=== PATIENT | female | born 1950 | race Caucasian/White ===

== ENCOUNTER → 2016-11-13 | Outpatient (CLI) | payer MEDICARE, OTHER ==
--- NOTE | 2016-11-13 14:54 | REPMRS ---
Patient History The patient states she had a clinical breast exam in 11/15 Patient is postmenopausal. No known family history of cancer. Taking estrogen for 5 years. Digital Woman Screen Mammo: November 13, 2016 - Exam #: [id number] Bilateral CC and MLO view(s) were taken. Technologist: Mary Whitehead, Technologist Prior study comparison: November 14, 2015, digital woman screen mammo performed at [facility]. August 09, 2014, digital woman screen mammo performed at [facility]. FINDINGS: There are scattered fibroglandular densities. There has been no change in the appearance of the mammogram from the prior studies. There is a mild amount of residual fibroglandular tissue which is fairly symmetric. There is no interval development of dominant mass, architectural distortion, or clustered microcalcification suggestive of malignancy. ASSESSMENT: BI-RADS/ACR category 1 mammogram. Negative. Recommendation Routine screening mammogram in 1 year (for women over age 40). This mammogram was interpreted with the aid of an FDA-approved computer-aided dectection system. Electronically Signed By: Mohsen Jimenez MD 11/13/16 6630
== END ==
LOC: M WHC 13:18
PROVIDERS: ATTEND Nurse Practitioner Family
DX: Z01.419 Encounter for gynecological examination (general) (routine) without abnormal findings (principal); Z12.31 Encounter for screening mammogram for malignant neoplasm of breast; Z78.0 Asymptomatic menopausal state; Z92.23 Personal history of estrogen therapy; Z12.12 Encounter for screening for malignant neoplasm of rectum
CPT/HCPCS: 82270; G0101; G0202

== ENCOUNTER → 2017-02-15 | Outpatient (CLI) | payer MEDICARE, OTHER ==
[2017-02-15 12:28] LABS: ALBUMIN 3.4 GM/DL (3.2-5.2); ALBUMIN/GLOBULIN RATIO 1.21 (1.00-1.93); ALKALINE PHOSPHATASE 49 U/L (45-117); ALT/SGPT 36 U/L (12-78); ANION GAP 7 MEQ/L (8-16); AST/SGOT 20 U/L (7-37); BILIRUBIN,TOTAL 0.5 MG/DL (0.2-1.0); BLOOD UREA NITROGEN 16 MG/DL (7-18); CARBON DIOXIDE LEVEL 32 MEQ/L (21-32); CHLORIDE LEVEL 105 MEQ/L (98-107); CHOLESTEROL LEVEL 235 MG/DL (<200); CREATININE FOR GFR 0.71 MG/DL (0.55-1.02); GLOMERULAR FILTRATION RATE > 60.0 (>45); GLUCOSE, FASTING 77 MG/DL (80-110); SODIUM LEVEL 144 MEQ/L (136-145); TOTAL PROTEIN 6.2 GM/DL (6.4-8.2); TRIGLYCERIDES LEVEL 95 MG/DL (<150)
== END ==
LOC: M LABDRAW1 08:11
PROVIDERS: ATTEND Nurse Practitioner Family
DX: E55.9 Vitamin D deficiency, unspecified (principal); E78.5 Hyperlipidemia, unspecified

== ENCOUNTER → 2017-11-14 | Outpatient (CLI) | payer MEDICARE, OTHER | LOC: M WHC 13:10 | DX: Z01.419 Encounter for gynecological examination (general) (routine) without abnormal findings (principal); Z12.31 Encounter for screening mammogram for malignant neoplasm of breast (principal); Z78.0 Asymptomatic menopausal state; Z92.23 Personal history of estrogen therapy; Z12.12 Encounter for screening for malignant neoplasm of rectum; N95.2 Postmenopausal atrophic vaginitis | CPT/HCPCS: 77067 ==

== ENCOUNTER → 2018-11-26 | Outpatient (REF) | payer MEDICARE, OTHER | LOC: M SFHCWAGY 15:07 | PROVIDERS: ATTEND Nurse Practitioner Family | DX: Z12.4 Encounter for screening for malignant neoplasm of cervix (principal); R87.615 Unsatisfactory cytologic smear of cervix ==

== ENCOUNTER → 2018-11-26 | Outpatient (CLI) | payer MEDICARE, OTHER ==
--- NOTE | 2018-11-26 15:48 | REPMRS ---
Patient History The patient states she had a clinical breast exam in 10/2018. Patient is postmenopausal. No known family history of cancer. Took estrogen for 7 years. Digital Woman Screen Mammo: November 26, 2018 - Exam #: [id number] Bilateral CC and MLO view(s) were taken. Technologist: Sofi Cardoso, Technologist Prior study comparison: November 14, 2017, bilateral digital woman screen mammo performed at [facility]. November 13, 2016, digital woman screen mammo performed at [facility]. November 14, 2015, digital woman screen mammo performed at [facility]. FINDINGS: There are scattered fibroglandular densities. There has been no change in the appearance of the mammogram from the prior studies. There is a mild amount of scattered fibroglandular density which is fairly symmetric. There is no interval development of dominant mass, architectural distortion, or grouped microcalcification suggestive of malignancy. 3-D tomosynthesis shows no additional findings. Assessment: BI-RADS/ACR category 1 mammogram. Negative Mammogram. Recommendation Routine screening mammogram of both breasts in 1 year (for women over age 40). This patient's Lifetime Breast Cancer Risk is estimated at 5.6 %. This mammogram was interpreted with the aid of an FDA-approved computer-aided dectection system. Electronically Signed By: Jam Bennett MD 11/26/18 2319
== END ==
LOC: M WHC 14:47
PROVIDERS: ATTEND Nurse Practitioner Family
DX: Z01.419 Encounter for gynecological examination (general) (routine) without abnormal findings (principal); Z12.31 Encounter for screening mammogram for malignant neoplasm of breast; Z78.0 Asymptomatic menopausal state; Z92.23 Personal history of estrogen therapy
CPT/HCPCS: 77063; 77067; G0101; G0123

== ENCOUNTER → 2018-12-08 | Outpatient (REF) | payer MEDICARE, OTHER ==
[2018-12-08 13:18] LABS: BLOOD UREA NITROGEN 15 MG/DL (7-18); CALCIUM LEVEL 9.1 MG/DL (8.8-10.2); CARBON DIOXIDE LEVEL 29 MEQ/L (21-32); CHLORIDE LEVEL 110 MEQ/L (98-107); GLOMERULAR FILTRATION RATE > 60.0 (>45); GLUCOSE, FASTING 93 MG/DL (70-100); POTASSIUM SERUM 4.1 MEQ/L (3.5-5.1); SODIUM LEVEL 145 MEQ/L (136-145)
[2018-12-10 00:06] LABS: IgG P18 AB Present (.); IgG P23 AB Absent (.); IgG P28 AB Present (.); IgG P30 AB Absent (.); IgG P39 AB Absent (.); IgG P41 AB Absent (.); IgG P45 AB Absent (.); IgG P66 AB Absent (.); IgG P93 AB Absent (.); IgM P23 AB Absent (.); IgM P39 AB Absent (.); IgM P41 AB Absent (.); LYME IgG WB INTERPRETATION Negative (.); LYME IgM WB INTERPRETATION Negative (.)
== END ==
LOC: M LABDRAW1 11:43
PROVIDERS: ATTEND Family Medicine
DX: S30.860D Insect bite (nonvenomous) of lower back and pelvis, subsequent encounter (principal); Z76.89 Persons encountering health services in other specified circumstances; W18.30XD Fall on same level, unspecified, subsequent encounter; Y92.009 Unspecified place in unspecified non-institutional (private) residence as the place of occurrence of the external cause

== ENCOUNTER → 2019-02-06 | Outpatient (REF) | payer MEDICARE, OTHER | LOC: M SFHCWAGY 11:22 | PROVIDERS: ATTEND Nurse Practitioner Family | DX: N95.2 Postmenopausal atrophic vaginitis (principal) | CPT/HCPCS: G0123; G0463 ==

== ENCOUNTER → 2019-09-08 | Outpatient (REF) | payer MEDICARE, OTHER | LOC: M LAB REF 17:25 | PROVIDERS: ATTEND Internal Medicine Endocrinology, Diabetes & Metabolism | DX: E04.2 Nontoxic multinodular goiter (principal) ==

== ENCOUNTER → 2019-12-28 | Outpatient (CLI) | payer MEDICARE, OTHER ==
--- NOTE | 2019-12-28 09:28 | REPMRS ---
Patient History The patient states she had a clinical breast exam in December 2019.Patient is postmenopausal. No known family history of cancer. Took estrogen for 7 years. 3D TOMOSYNTHESIS WAS PERFORMED. [facility] %. [place]. Digital Woman Screen Mammo: December 28, 2019 - Exam #: [id number] Bilateral CC and MLO view(s) were taken. Technologist: Sintia Casas, Technologist Prior study comparison: November 26, 2018, bilateral digital woman screen mammo performed at [facility]. November 14, 2017, bilateral digital woman screen mammo performed at [facility]. FINDINGS: There are scattered fibroglandular densities. There has been no change in the appearance of the mammogram from the prior studies. There is a mild amount of residual fibroglandular tissue which is fairly symmetric. There is no interval development of dominant mass, architectural distortion, or clustered microcalcification suggestive of malignancy. Assessment: BI-RADS/ACR category 1 mammogram. Negative Mammogram. Recommendation Routine screening mammogram in 1 year (for women over age 40). This mammogram was interpreted with the aid of an FDA-approved computer-aided dectection system. Electronically Signed By: Mohsen Jimenez MD 12/28/19 0928
== END ==
LOC: M WHC 08:15
PROVIDERS: ATTEND Nurse Practitioner Family
DX: Z12.31 Encounter for screening mammogram for malignant neoplasm of breast (principal); Z78.0 Asymptomatic menopausal state; Z92.23 Personal history of estrogen therapy

== ENCOUNTER → 2020-01-14 | Outpatient (REF) | payer MEDICARE, OTHER ==
[2020-01-14 17:08] LABS: C REACTIVE PROTEIN QUANTITATIV < 0.30 MG/DL (0.00-0.30); URIC ACID 3.7 MG/DL (2.6-6.0)
== END ==
LOC: M LAB REF 16:06
PROVIDERS: ATTEND Internal Medicine
DX: M25.50 Pain in unspecified joint (principal)

== ENCOUNTER → 2021-01-25 | Outpatient (CLI) | payer MEDICARE, OTHER ==
--- NOTE | 2021-01-25 14:00 | REP ---
INDICATION: ENCNTR SCREEN MAMMO FOR MALIG NEOPLASM OF BREAS. COMPARISON: Multiple prior screening examinations, the most recent, 12/28/2019 TECHNIQUE: Digital screening (2D) mammography was performed bilaterally in the CC and MLO projections. Additionally, breast tomosynthesis (3D mammography) was performed bilaterally in the CC and MLO projections. FINDINGS: By history, the patient has no complaints of a palpable breast abnormality or other significant breast complaints. The Volpara volumetric breast density pattern is b, there are scattered areas of fibroglandular density. In the middle 3rd of the right breast, lateral to the nipple, seen only on the CC view there is an area of architectural distortion.. IMPRESSION: BIRADS/ACR : Category 0: Incomplete. This patient's Tyrer-Cuzick lifetime breast cancer risk assessment score is 5.0%. This mammogram was interpreted with the aid of an FDA-approved computer-aided detection system. The patient states she has not had a clinical breast exam in over a year. The patient letter being requested is M0. RECOMMENDATION: Focal compression of the right breast in the cc orientation and an exaggerated CC view of the right breast. <Electronically signed by Raz Stephens > 01/25/21 8020
== END ==
LOC: M WHC 09:30
PROVIDERS: ATTEND Internal Medicine
DX: Z12.31 Encounter for screening mammogram for malignant neoplasm of breast (principal); R92.8 Other abnormal and inconclusive findings on diagnostic imaging of breast

== ENCOUNTER → 2021-02-21 | Outpatient (CLI) | payer MEDICARE, OTHER | LOC: M WHC 14:41 | PROVIDERS: ATTEND Internal Medicine | DX: Z12.31 Encounter for screening mammogram for malignant neoplasm of breast (principal); N64.89 Other specified disorders of breast | CPT/HCPCS: 77065; G0279 ==

== ENCOUNTER → 2021-10-11 | Outpatient (REF) | payer MEDICARE, OTHER | LOC: M LAB REF 12:16 | PROVIDERS: ATTEND Internal Medicine | DX: D51.9 Vitamin B12 deficiency anemia, unspecified (principal) ==

== ENCOUNTER → 2022-02-28 | Outpatient (CLI) | payer MEDICARE, OTHER | LOC: M WHC 09:08 | PROVIDERS: ATTEND Internal Medicine | DX: Z12.31 Encounter for screening mammogram for malignant neoplasm of breast (principal) ==

== ENCOUNTER → 2022-10-23 | Outpatient (CLI) | payer MEDICARE, OTHER | LOC: M RAD 13:46 | PROVIDERS: ATTEND Internal Medicine | DX: R32 Unspecified urinary incontinence (principal) ==

== ENCOUNTER → 2023-03-05 | Outpatient (CLI) | payer MEDICARE, OTHER | LOC: M WHC 15:52 | PROVIDERS: ATTEND Internal Medicine | DX: Z12.31 Encounter for screening mammogram for malignant neoplasm of breast (principal) ==

== ENCOUNTER → 2023-04-25 | Outpatient (REF) | payer MEDICARE, OTHER | LOC: M LAB REF 16:30 | PROVIDERS: ATTEND Internal Medicine | DX: D51.9 Vitamin B12 deficiency anemia, unspecified (principal) ==

== ENCOUNTER → 2023-10-09 | Outpatient (REF) | payer MEDICARE, OTHER ==
[2023-10-11 15:37] LABS: ANA PATTERN Cytoplasmic (NEGATIVE); ANA SCREEN, IFA POSITIVE (NEGATIVE); ANA TITER 1:40 titer (<1:40)
[2023-10-12 02:12] LABS: CYCLIC CITRULLINATED PEPTIDE < 16 UNITS (<20)
[2023-10-14 23:58] LABS: Anaplasma phagocytophilum NOT DETECTED (NOT DETECT); Babesia microti NOT DETECTED (NOT DETECT); Ehrlichia chaffeensis NOT DETECTED (NOT DETECT)
== END ==
LOC: M LAB REF 16:12
PROVIDERS: ATTEND Internal Medicine
DX: M25.50 Pain in unspecified joint (principal)

== ENCOUNTER → 2024-03-10 | Outpatient (CLI) | payer MEDICARE, OTHER | LOC: M WHC 07:05 | PROVIDERS: ATTEND Internal Medicine | DX: Z12.31 Encounter for screening mammogram for malignant neoplasm of breast (principal) ==

== ENCOUNTER → 2024-03-11 | Outpatient (REF) | payer MEDICARE, OTHER | LOC: M LAB REF 16:15 | PROVIDERS: ATTEND Internal Medicine | DX: D51.9 Vitamin B12 deficiency anemia, unspecified (principal) ==

== ENCOUNTER → 2024-10-13 | Outpatient (CLI) | payer MEDICARE, OTHER | LOC: M RAD 11:48 | PROVIDERS: ATTEND Internal Medicine | DX: R42 Dizziness and giddiness (principal) ==

== ENCOUNTER → 2024-10-13 | Outpatient (REF) | payer MEDICARE, OTHER | LOC: M LAB REF 11:57 | PROVIDERS: ATTEND Internal Medicine | DX: N39.0 Urinary tract infection, site not specified (principal) ==

== ENCOUNTER → 2024-10-29 | Outpatient (CLI) | payer MEDICARE, OTHER | LOC: M PLAIMG 11:59 | PROVIDERS: ATTEND Internal Medicine | DX: R05.3 Chronic cough (principal) ==

== ENCOUNTER → 2025-02-19 | Outpatient (REF) | payer MEDICARE, OTHER | LOC: M LAB REF 12:32 | PROVIDERS: ATTEND Internal Medicine | DX: R30.0 Dysuria (principal) ==

== ENCOUNTER → 2025-03-16 | Outpatient (CLI) | payer MEDICARE, OTHER | LOC: M WHC 07:59 | PROVIDERS: ATTEND Internal Medicine | DX: Z12.31 Encounter for screening mammogram for malignant neoplasm of breast (principal) ==